=== PATIENT | female | born 1995 | race Caucasian/White ===

== ENCOUNTER 2017-11-10 09:04 | Inpatient (IN) | payer OTHER ==
[~2017-11-10] VITALS: Ht 167.6 cm; Wt 99.0 kg
[~2017-11-10 09:04] MED LIST: AMOXICILLIN500 MG PO; AURALGAN EAR DR14 ML AS; BLEPH-105 ML OS; CEPHALEXIN500 MG PO; DEPO-PROVE150 MG/1 M IM; KEFLEX500 MG PO; MACROBID 100 M100 MG PO; MEDROXYPRO150 MG/1 M IM; NORCO 5-325 TA1 EACH PO; PENICILLIN V P500 MG PO; PRENATAL MULTI1 EACH PO; TOPROL XL50 MG PO; TRAMADOL HCL50 MG PO
--- NOTE | 2017-11-11 12:03 | PR ---
[facility] [address] [place], [place] [address] Signed PP Progress Notes Datetime Report Generated by CPN: 11/11/2017 12:03 SUBJECTIVE: [id number] Pain: Within normal limits Nausea/Vomiting: Denies Vital Signs: [id number] Vital Signs: Reviewed; Within Normal Limits EXAM: [id number] Abdomen/Uterus: Normal Lochia: Normal Vulva/Perineum: Normal Extremities: Normal Exam Comments: Scant bleeding w/ fundal massage. Fundus firm IMPRESSION/PLAN/PROCEDURES: [id number] Impression: Normal progression Plan: Discharge Procedures: None Progress Notes: Doing well, wants to go home Signing Physician: Aimee Elias MD Copies: ~ *Electronically Signed* 11/11/17 1203 AIMEE ELIAS MD PATIENT NAME: CHRISTINA HERRON PROGRESS NOTE DATE OF : 94 PHYSICIAN: AIMEE ELIAS MD RPT #: [id number] REPORT IS CONFIDENTIAL AND NOT TO BE RELEASED WITHOUT AUTHORIZATION
== END 2017-11-11 13:00 | disposition home or self-care (01) | DRG 775 ==
LOC: FBC 09:04
PROVIDERS: ADMIT Obstetrics & Gynecology
PROC: 0KQM0ZZ Repair Perineum Muscle, Open Approach (ICD-10-PCS; principal; 2017-11-10)
PROC: 10907ZC Drainage of Amniotic Fluid, Therapeutic from Products of Conception, Via Natural or Artificial Opening (ICD-10-PCS; principal; 2017-11-10)
PROC: 10E0XZZ Delivery of Products of Conception, External Approach (ICD-10-PCS; principal; 2017-11-10)
DX: O99.214 Obesity complicating childbirth (principal); O70.1 Second degree perineal laceration during delivery; Z37.0 Single live birth; Z3A.37 37 weeks gestation of pregnancy
CPT/HCPCS: 36415; 85027; J2590

== ENCOUNTER 2018-08-19 18:38 | Emergency (ER) | payer OTHER ==
[~2018-08-19] VITALS: Ht 167.6 cm; Wt 98.9 kg
== END 2018-08-19 19:27 | disposition home or self-care (01) ==
LOC: ED 18:38
DX: S93.401A Sprain of unspecified ligament of right ankle, initial encounter (principal); X50.9XXA Other and unspecified overexertion or strenuous movements or postures, initial encounter; F17.200 Nicotine dependence, unspecified, uncomplicated
CPT/HCPCS: 73610; 99283-25